=== PATIENT | male | born 1960 | race Caucasian/White ===

== ENCOUNTER 2018-12-25 19:30 | Emergency (ER) | payer MEDICAID ==
[~2018-12-25] VITALS: Ht 172.7 cm; Wt 64.8 kg
[2018-12-26 02:37] VITALS: BP 156/79
== END 2018-12-26 02:39 | disposition home or self-care (01) ==
LOC: ER 19:30
DX: Z00.8 Encounter for other general examination (principal); N28.9 Disorder of kidney and ureter, unspecified; I10 Essential (primary) hypertension; E11.9 Type 2 diabetes mellitus without complications; Z98.890 Other specified postprocedural states
CPT/HCPCS: 71045; 99281; 99283

== ENCOUNTER 2019-01-17 10:08 | Inpatient (IN) | payer MEDICAID ==
[~2019-01-17] VITALS: Ht 152.4 cm; Wt 65.8 kg
[2019-01-17] MEDS ORDERED: ONDANSETRON HCL 4MG/2ML INJ IV ONE (11:15)
[2019-01-17 11:28] LABS: BASOPHILS % 0.5 % (0.0-2.0); EOSINOPHILS % 1.4 % (0.0-5.0); HEMATOCRIT. 35.6 % (42.0-52.0); HEMOGLOBIN. 11.9 g/dL (14.0-18.0); LYMPHOCYTES % 8.7 % (20.0-50.0); MEAN CORPUSCULAR HEMOGLOBIN 28.2 pg (28.0-32.0); MEAN CORPUSCULAR VOLUME 84.8 fL (80.0-94.0); MEAN PLATELET VOLUME 8.3 fl (7.4-10.4); NEUTROPHILS % 82.4 % (40.0-76.0); PLATELET 163 x1000/uL (130-400); RED CELL DISTRIBUTION WIDTH 16.6 % (11.6-14.6)
[2019-01-17 11:36] LABS: CHLORIDE 97 mEq/L (98-107)
[2019-01-17] MEDS ORDERED: GUAIFENESIN 200MG/10ML SUGAR FREE UDC PO PRN (15:15)
[2019-01-17] MEDS ORDERED: MAGNESIUM/ALUMINUM HYDROXIDE/SIMETHICONE 30ML UDC PO PRN (15:15)
[2019-01-17] MEDS ORDERED: LORAZEPAM 0.5MG TABLET PO PRN (15:15)
[2019-01-17] MEDS ORDERED: NITROGLYCERIN 0.4MG TABLET SL SL PRN (15:15)
[2019-01-17] MEDS ORDERED: ONDANSETRON HCL 4MG/2ML INJ IV PRN (15:15)
[2019-01-17] MEDS ORDERED: IPRATROPIUM/ALBUTEROL 0.5-3(2.5)MG/3ML NEB INH PRN (15:15)
[2019-01-17] MEDS ORDERED: ZOLPIDEM TARTRATE 5MG TABLET PO PRN (15:15)
[2019-01-17] MEDS ORDERED: CLONIDINE 0.1MG TABLET PO PRN (15:15)
[2019-01-17] MEDS ORDERED: ACETAMINOPHEN 325MG TABLET PO PRN (15:15)
[2019-01-17] MEDS ORDERED: DOCUSATE SODIUM 100MG CAPSULE PO PRN (15:15)
[2019-01-17 16:00] VITALS: BP 166/78
[2019-01-17 16:20] VITALS: BP 161/85
[2019-01-17] MEDS ORDERED: ENOXAPARIN 40MG/0.4ML SYR SUBCUT SCH (18:30)
[2019-01-17 20:00] VITALS: BP 159/79
[2019-01-17] MEDS: NITROGLYCERIN 0.4MG/HR PATCH TOP SCH (20:04)
[2019-01-17] MEDS ORDERED: DEXTROSE 50% WATER 50ML SYRINGE IV PRN (20:30)
[2019-01-17] MEDS: FAMOTIDINE 20MG TABLET PO SCH (21:20)
[2019-01-17] MEDS: HYDRALAZINE HCL 50MG TABLET PO SCH (21:21)
[2019-01-17] MEDS: LISINOPRIL 20MG TABLET PO SCH (21:21)
[2019-01-17] MEDS: BLOOD SUGAR DIAGNOSTIC STRIP TEST SCH (21:23)
[2019-01-17] MEDS: INSULIN LISPRO 100 UNITS/ML SUBCUT SCH (21:25)
[2019-01-17 22:15] LABS: CREATINE KINASE MB FRACTION 3.4 ng/mL (0.5-3.6)
[2019-01-18] VITALS: BP 157/85
[2019-01-18 04:00] VITALS: BP 168/88
[2019-01-18] MEDS: HYDRALAZINE HCL 50MG TABLET PO SCH (06:12)
[2019-01-18] MEDS: BLOOD SUGAR DIAGNOSTIC STRIP TEST SCH (07:40)
[2019-01-18 07:45] LABS: CREATINE KINASE MB FRACTION 2.8 ng/mL (0.5-3.6)
[2019-01-18 08:00] VITALS: BP 175/91
[2019-01-18] MEDS ORDERED: ASPIRIN 325MG EC TABLET PO SCH (09:00)
[2019-01-18 09:07] LABS: BASOPHILS % 1.4 % (0.0-2.0); EOSINOPHILS % 6.1 % (0.0-5.0); HEMATOCRIT. 34.8 % (42.0-52.0); HEMOGLOBIN. 11.6 g/dL (14.0-18.0); LYMPHOCYTES % 19.3 % (20.0-50.0); MEAN CORPUSCULAR HEMOGLOBIN 28.6 pg (28.0-32.0); MEAN CORPUSCULAR VOLUME 85.6 fL (80.0-94.0); MEAN PLATELET VOLUME 8.9 fl (7.4-10.4); MONOCYTES % 10.5 % (2.0-8.0); NEUTROPHILS % 62.7 % (40.0-76.0); PLATELET 162 x1000/uL (130-400); RED BLOOD CELL COUNT 4.07 mill/uL (4.7-6.1); RED CELL DISTRIBUTION WIDTH 17.1 % (11.6-14.6)
[2019-01-18] MEDS: FAMOTIDINE 20MG TABLET PO SCH (10:37)
[2019-01-18] MEDS: LISINOPRIL 20MG TABLET PO SCH ×2 (10:38→10:58)
[2019-01-18] MEDS: INSULIN LISPRO 100 UNITS/ML SUBCUT SCH (10:40)
[2019-01-18] MEDS: NITROGLYCERIN 0.4MG/HR PATCH TOP SCH (10:55)
[2019-01-18 12:00] VITALS: BP 168/84
[2019-01-18 13:34] VITALS: BP 168/60
== END 2019-01-18 15:25 | disposition home or self-care (01) | DRG 201 ==
LOC: ER 10:08 → 7WST 13:36 → ENRESERV 14:00
PROVIDERS: ADMIT Internal Medicine; ATTEND Internal Medicine
PROC: 5A1D70Z Performance of Urinary Filtration, Intermittent, Less than 6 Hours Per Day (ICD-10-PCS; principal; 2019-01-18)
DX: R00.1 Bradycardia, unspecified (principal); E11.22 Type 2 diabetes mellitus with diabetic chronic kidney disease; E44.0 Moderate protein-calorie malnutrition; I12.0 Hypertensive chronic kidney disease with stage 5 chronic kidney disease or end stage renal disease; E11.65 Type 2 diabetes mellitus with hyperglycemia; R55 Syncope and collapse; E83.51 Hypocalcemia; N18.6 End stage renal disease; D63.8 Anemia in other chronic diseases classified elsewhere; E83.52 Hypercalcemia; T46.1X5A Adverse effect of calcium-channel blockers, initial encounter; Y92.89 Other specified places as the place of occurrence of the external cause; Z79.84 Long term (current) use of oral hypoglycemic drugs; Z99.2 Dependence on renal dialysis
CPT/HCPCS: 36415; 71045; 80048; 80061; 82550; 82553; 82962; 83036; 84484; 93005; 93970; 96372; 96374; 99285; J1650; J1815; J2405

== ENCOUNTER 2022-09-14 11:03 | Emergency (ER) | payer MEDICAID ==
[~2022-09-14] VITALS: Ht 177.8 cm; Wt 76.0 kg
[2022-09-14 11:12] VITALS: BP 148/79
[2022-09-14 14:14] LABS: HEMATOCRIT. 32.2 % (42.0-52.0); MEAN CORPUSCULAR HEMOGLOBIN 30.6 pg (28.0-32.0); MEAN CORPUSCULAR VOLUME 89.8 fL (80.0-94.0); MEAN PLATELET VOLUME 10.1 fl (7.4-10.4); PLATELET 139 x1000/uL (130-400); RED BLOOD CELL COUNT 3.59 mill/uL (4.7-6.1); RED CELL DISTRIBUTION WIDTH 16.5 % (11.6-14.6)
[2022-09-14 14:19] LABS: CHLORIDE 94 mEq/L (98-107)
[2022-09-14 15:20] LABS: PLATELET ESTIMATE NORMAL
[2022-09-14] MEDS ORDERED: TOPUD PO (15:49)
[2022-09-14] MEDS ORDERED: ACETAMINOPHEN 325MG TABLET PO NR (16:00)
== END 2022-09-14 17:02 | disposition home or self-care (01) ==
LOC: ER 11:03
DX: S80.01XA Contusion of right knee, initial encounter (principal); S70.11XA Contusion of right thigh, initial encounter; S70.01XA Contusion of right hip, initial encounter; R53.1 Weakness; I12.0 Hypertensive chronic kidney disease with stage 5 chronic kidney disease or end stage renal disease; E11.22 Type 2 diabetes mellitus with diabetic chronic kidney disease; N18.6 End stage renal disease; W01.0XXA Fall on same level from slipping, tripping and stumbling without subsequent striking against object, initial encounter; Y93.89 Activity, other specified; Y92.89 Other specified places as the place of occurrence of the external cause; Z99.2 Dependence on renal dialysis; Z79.84 Long term (current) use of oral hypoglycemic drugs; Z79.4 Long term (current) use of insulin
CPT/HCPCS: 36415; 71045; 73502; 73552; 73562; 80053; 83735; 85025; 99284

== ENCOUNTER 2025-08-31 10:11 | Emergency (ER) | payer MEDICAID ==
[~2025-08-31] VITALS: Ht 170.2 cm; Wt 77.0 kg
[~2025-08-31 10:11] MED LIST: TOPUD PO
[2025-08-31 10:13] VITALS: O2SAT 100
[2025-08-31] MEDS: HYDROCODONE/ACETAMINOPHEN 5/325MG TABLET PO ONE (11:05)
[2025-08-31 11:25] LABS: BASOPHILS % 1.5 % (0.0-2.0); EOSINOPHILS % 1.4 % (0.0-5.0); HEMATOCRIT. 31.8 % (42.0-52.0); HEMOGLOBIN. 10.6 g/dL (14.0-18.0); LYMPHOCYTES % 14.3 % (20.0-50.0); MEAN PLATELET VOLUME 9.4 fl (7.4-10.4); MONOCYTES % 8.5 % (2.0-8.0); NEUTROPHILS % 74.3 % (40.0-76.0); PLATELET 117 x1000/uL (130-400); RED BLOOD CELL COUNT 3.48 mill/uL (4.7-6.1); RED CELL DISTRIBUTION WIDTH 16.3 % (11.6-14.6)
[2025-08-31 11:41] LABS: INR 1.1
[2025-08-31 11:53] LABS: CREATININE 4.4 mg/dL (0.6-1.3); ETHANOL BLOOD < 10 mg/dL (<10); PROTEIN TOTAL 7.0 g/dL (6.0-8.3); UREA NITROGEN BLOOD 40 mg/dL (9-23)
[2025-08-31 11:54] LABS: TROPONIN I HIGH SENSITIVITY 27 ng/L (3.0-53)
[2025-08-31 11:55] LABS: ASPARTATE AMINOTRANSFERASE 20 IU/L (<34); BILIRUBIN DIRECT 0.4 mg/dL (<=3.0); BILIRUBIN TOTAL 0.7 mg/dL (0.1-1.0)
[2025-08-31] MEDS ORDERED: TRAM50TA3 MT (12:03)
[2025-08-31 13:30] VITALS: BP 141/83; PULSE 45; RESP 20; TEMP 36.6; O2SAT 100
== END 2025-08-31 13:42 | disposition home or self-care (01) ==
LOC: ER 10:11
DX: M25.512 Pain in left shoulder (principal); M25.511 Pain in right shoulder; E11.22 Type 2 diabetes mellitus with diabetic chronic kidney disease; I12.0 Hypertensive chronic kidney disease with stage 5 chronic kidney disease or end stage renal disease; N18.6 End stage renal disease; N18.9 Chronic kidney disease, unspecified; F17.200 Nicotine dependence, unspecified, uncomplicated; Z99.2 Dependence on renal dialysis
CPT/HCPCS: 36415; 71045; 80048; 80076; 80320; 84484; 85025; 93005; 99285; G0480